=== PATIENT | female | born 1955 | race Caucasian/White ===

== ENCOUNTER → 2016-06-29 | Outpatient (CLI) | payer OTHER ==
[~2016-06-29] MED LIST: FUR40T PO; KRIL300C2 PO; METO-159 PO; NITR0.4D10 TD; POT10T PO; Pantoprazole Sodium Sesquihydr PO; WARF5TAB PO
[2016-06-29 12:50] LABS: Cholesterol 219 mg/dL (<200); HDL Cholesterol 50 mg/dL (40-59); LDL Cholesterol 146 mg/dL (<100); Triglycerides 254 mg/dL (<150)
== END | disposition home or self-care (01) ==
LOC: LAB 11:10
PROVIDERS: ATTEND Internal Medicine Cardiovascular Disease
DX: E78.2 Mixed hyperlipidemia (principal); I25.810 Atherosclerosis of coronary artery bypass graft(s) without angina pectoris
CPT/HCPCS: 36415; 80061

== ENCOUNTER 2016-07-15 07:46 | Emergency (ER) | payer OTHER ==
[~2016-07-15] VITALS: Ht 160 cm; Wt 78.9 kg
[2016-07-15 08:00] VITALS: BP 147/98
[2016-07-15] MEDS ORDERED: ETHYL CHLORIDE SPRAY TOP ONE (08:15)
[2016-07-15] MEDS ORDERED: KETOROLAC TROMETH 60MG/2ML VIAL IM ONE (08:30)
[2016-07-15] MEDS ORDERED: cefTRIAXone SOD 1,000 MG VL IM ONE (08:30)
[2016-07-15] MEDS ORDERED: HYDROcodone-ACET 10/325MG TAB PO ONE (08:45)
[2016-09-07] MEDS ORDERED: VENL37.56 PO (14:47)
[2016-09-07] MEDS ORDERED: ALIR1INJ3 SC (14:47)
[2016-09-07] MEDS ORDERED: ASPI-231 PO (14:47)
== END 2016-07-15 09:12 | disposition home or self-care (01) ==
LOC: ER 07:53
DX: K61.1 Rectal abscess (principal); E11.9 Type 2 diabetes mellitus without complications; I25.2 Old myocardial infarction; I25.810 Atherosclerosis of coronary artery bypass graft(s) without angina pectoris; Z95.1 Presence of aortocoronary bypass graft; Z79.01 Long term (current) use of anticoagulants; Z88.6 Allergy status to analgesic agent; Z88.8 Allergy status to other drugs, medicaments and biological substances; Z79.899 Other long term (current) drug therapy
CPT/HCPCS: 46040; 96372; 99284; C1887; J0696

== ENCOUNTER 2016-07-17 07:42 | Emergency (ER) | payer OTHER ==
[~2016-07-17] VITALS: Ht 160 cm; Wt 78.0 kg
[2016-07-17 08:11] VITALS: BP 156/84
== END 2016-07-17 09:32 | disposition home or self-care (01) ==
LOC: ER 07:42
DX: N76.4 Abscess of vulva (principal); E11.9 Type 2 diabetes mellitus without complications; I25.2 Old myocardial infarction; I25.810 Atherosclerosis of coronary artery bypass graft(s) without angina pectoris; Z88.6 Allergy status to analgesic agent; Z88.8 Allergy status to other drugs, medicaments and biological substances

== ENCOUNTER → 2016-09-21 | Outpatient (CLI) | payer OTHER ==
[~2016-09-21] MED LIST changes: +ALIR1INJ3 SC; +ASPI-231 PO; -FUR40T PO; -KRIL300C2 PO; -NITR0.4D10 TD; -POT10T PO; -Pantoprazole Sodium Sesquihydr PO; +VENL37.56 PO; -WARF5TAB PO
[2016-09-21 09:43] LABS: Basophils # (auto) 0 uL; Basophils % (auto) 0.6 % (0.0-2.0); Eosinophils # (auto) 0.2 uL; Eosinophils % (auto) 2.6 % (0.0-7.0); Hematocrit 43.4 % (36.0-46.0); Hemoglobin 14.4 g/dL (12.2-16.2); Lymphocytes # (auto) 2.3 uL; Lymphocytes % (auto) 37.7 % (10.0-50.0); Mean Corpuscular Hemoglobin 30.2 pg (28.0-32.0); Mean Corpuscular Hgb Conc. 33.3 g/dL (32.0-36.0); Mean Corpuscular Volume 90.6 fL (80.0-100.0); Mean Platelet Volume 8.1 fL (7.4-10.4); Monocytes # (auto) 0.3 uL; Monocytes % (auto) 5.5 % (0.0-12.0); Neutrophils # (auto) 3.3 uL; Neutrophils % (auto) 53.6 % (37.0-80.0); Platelet Count (auto) 270 10^3/uL (140-450); Red Cell Distribution Width 13.1 % (11.6-16.0); White Blood Cell 6.2 10^3/uL (4.4-10.8)
[2016-09-21 09:57] LABS: INR 0.97 (0.9-1.15); Partial Thromboplastin Time 24.5 sec (22.64-33.71); Prothrombin Time 10.5 sec (9.37-12.3); Urine Bilirubin Negative (Negative); Urine Color Yellow (Yellow); Urine Glucose Normal (Normal); Urine Ketone Negative (Negative); Urine Mucus FEW (None Seen); Urine Nitrite Negative (Negative); Urine RBC 9 /hpf (0 - 4); Urine Squamous Epithelial Cell MOD /hpf (<5); Urine Urobilinogen Normal (Negative)
[2016-09-21 10:12] LABS: Albumin 3.8 g/dL (3.4-5.0); BUN/Creatinine Ratio 23.2; Bilirubin, Total 0.4 mg/dL (0.2-1.0); Potassium 4.6 mmol/L (3.5-5.1); Total Protein 7.6 g/dL (6.4-8.2)
[2016-09-21 10:49] LABS: Urine Blood 2+ /uL (Negative)
== END | disposition home or self-care (01) ==
LOC: LAB 09:07
PROVIDERS: ATTEND Radiology Vascular & Interventional Radiology
DX: E78.5 Hyperlipidemia, unspecified (principal); Z01.818 Encounter for other preprocedural examination
CPT/HCPCS: 36415; 80053; 80061; 81001; 85025; 85610; 85730

== ENCOUNTER → 2016-09-23 | Day surgery (SDC) | payer OTHER ==
[~2016-09-23] VITALS: Ht 33 cm; Wt 0.5 kg
[~2016-09-23] MED LIST changes: +BUPIVACAINE HCL 50 ML ONE; +DEXAMETHASONE SOD PHOS 10MG/1ML VIAL INJ ONE; +GLYCOPYRROLATE 0.2 MG/ML 1ML VIAL ONE; +HEPARIN SODIUM (PORCINE) 5000 UNITS/ML 1ML VIAL ONE; +HEPARIN SODIUM (PORCINE) 5000 UNITS/ML 1ML VIAL SC ONE; +HYDROmorphone HCL 2 MG/ML VL IV PRN; +KETOROLAC TROMETH 30 MG/ML 1ML VIAL IV ONE; +LABETALOL HCL 5 MG/ML 4ML SYRINGE IV PRN; +LIDOCAINE 1% HCL (LOCAL ANESTH.) INJ 20ML MDV ONE; +MEPERIDINE HCL (50 MG/ML) 1 ML VIAL ONE; +MIDAZOLAM HCL 1MG/1ML-2 ML VIAL IV PRN; +MIDAZOLAM HCL 1MG/1ML-2 ML VIAL ONE; +MORPHINE SULF INJ 2 MG/ML SYRINGE 1ML IV PRN; +NEOSTIGMINE 1 MG/ML INJ (10mg/10ML VIAL) ONE; +ONDANSETRON HCL 4 MG/2 ML VIAL IV ONE; +PIPERACILLIN-TAZOB 3.375GM 100 ML IV ONE; +PROPOFOL 10 MG/ML 20 ML IV ONE; +SUCCINYLCHOLINE CHLORIDE 20 MG/ML 10ML VIAL IV ONE; +ePHEDrine SULFATE 50 MG/ML AMP IV PRN; +fentaNYL CITRATE 100 MCG/2 ML VL ONE; +hydrALAZINE HCL 20 MG/ML VL IV PRN; +metroNIDAZOLE 500MG/100ML 100 ML IV ONE
[2016-09-23 12:39] VITALS: BP 139/73
== END | disposition home or self-care (01) ==
LOC: SUR 07:07
DX: K60.3 Anal fistula (principal); K64.2 Third degree hemorrhoids; Z95.1 Presence of aortocoronary bypass graft; Z90.710 Acquired absence of both cervix and uterus
CPT/HCPCS: 46020; J0330; J1100; J1644; J2001; J2175; J2250; J2543; J2704; J3010; J3490

== ENCOUNTER → 2017-02-05 | Outpatient (CLI) | payer OTHER ==
[~2017-02-05] MED LIST changes: -BUPIVACAINE HCL 50 ML ONE; -DEXAMETHASONE SOD PHOS 10MG/1ML VIAL INJ ONE; -GLYCOPYRROLATE 0.2 MG/ML 1ML VIAL ONE; -HEPARIN SODIUM (PORCINE) 5000 UNITS/ML 1ML VIAL ONE; -HEPARIN SODIUM (PORCINE) 5000 UNITS/ML 1ML VIAL SC ONE; -HYDROmorphone HCL 2 MG/ML VL IV PRN; -KETOROLAC TROMETH 30 MG/ML 1ML VIAL IV ONE; -LABETALOL HCL 5 MG/ML 4ML SYRINGE IV PRN; -LIDOCAINE 1% HCL (LOCAL ANESTH.) INJ 20ML MDV ONE; -MEPERIDINE HCL (50 MG/ML) 1 ML VIAL ONE; -MIDAZOLAM HCL 1MG/1ML-2 ML VIAL IV PRN; -MIDAZOLAM HCL 1MG/1ML-2 ML VIAL ONE; -MORPHINE SULF INJ 2 MG/ML SYRINGE 1ML IV PRN; -NEOSTIGMINE 1 MG/ML INJ (10mg/10ML VIAL) ONE; -ONDANSETRON HCL 4 MG/2 ML VIAL IV ONE; -PIPERACILLIN-TAZOB 3.375GM 100 ML IV ONE; -PROPOFOL 10 MG/ML 20 ML IV ONE; -SUCCINYLCHOLINE CHLORIDE 20 MG/ML 10ML VIAL IV ONE; -ePHEDrine SULFATE 50 MG/ML AMP IV PRN; -fentaNYL CITRATE 100 MCG/2 ML VL ONE; -hydrALAZINE HCL 20 MG/ML VL IV PRN; -metroNIDAZOLE 500MG/100ML 100 ML IV ONE
[2017-02-05 09:38] LABS: Albumin 3.7 g/dL (3.4-5.0); Alkaline Phosphatase 88 U/L (45-117); Anion Gap 9 (5-15); Aspartate Aminotransferase 15 U/L (15-37); BUN/Creatinine Ratio 28.6; Bilirubin, Direct < 0.1 mg/dL (0-0.2); Bilirubin, Total 0.3 mg/dL (0.2-1.0); Blood Urea Nitrogen 20 mg/dL (7-18); Calcium 9.1 mg/dL (8.5-10.1); Carbon Dioxide 26 mmol/L (21-32); Chloride 104 mmol/L (98-107); Cholesterol 148 mg/dL (< 200); GFR African American 109 mL/min; GFR Non-African American 90 mL/min; Glucose 105 mg/dL (74-106); HDL Cholesterol 50 mg/dL (40-59); LDL Cholesterol 85 mg/dL (< 100); Potassium 4.5 mmol/L (3.5-5.1); Sodium 139 mmol/L (136-145); Total Protein 7.4 g/dL (6.4-8.2); Triglycerides 203 mg/dL (< 150)
== END | disposition home or self-care (01) ==
LOC: LAB 08:03
PROVIDERS: ATTEND Internal Medicine Cardiovascular Disease
DX: E78.5 Hyperlipidemia, unspecified (principal); I25.798 Atherosclerosis of other coronary artery bypass graft(s) with other forms of angina pectoris; I25.10 Atherosclerotic heart disease of native coronary artery without angina pectoris; E11.9 Type 2 diabetes mellitus without complications
CPT/HCPCS: 36415; 80053; 80061; 80076

== ENCOUNTER → 2017-03-22 | Outpatient (CLI) | payer OTHER | END | disposition home or self-care (01) | LOC: LAB 17:06 | PROVIDERS: ATTEND Internal Medicine | DX: Z00.01 Encounter for general adult medical examination with abnormal findings (principal); R79.89 Other specified abnormal findings of blood chemistry | CPT/HCPCS: 82270 ==

== ENCOUNTER → 2017-05-10 | Outpatient (CLI) | payer OTHER ==
[2017-05-10 11:08] LABS: Basophils # (auto) 0.1 uL; Basophils % (auto) 0.8 % (0.0-2.0); Eosinophils # (auto) 0.2 uL; Eosinophils % (auto) 2.3 % (0.0-7.0); Hematocrit 44.5 % (36.0-46.0); Hemoglobin 15.4 g/dL (12.2-16.2); Lymphocytes # (auto) 2.5 uL; Lymphocytes % (auto) 30.4 % (10.0-50.0); Mean Corpuscular Hgb Conc. 34.5 g/dL (32.0-36.0); Mean Corpuscular Volume 92.7 fL (80.0-100.0); Mean Platelet Volume 8.2 fL (6.9-10.8); Monocytes # (auto) 0.4 uL; Monocytes % (auto) 5.2 % (0.0-12.0); Neutrophils % (auto) 61.3 % (37.0-80.0); Nucleated Red Blood Cells % 0.1 %; Platelet Count (auto) 287 10^3/uL (140-450); Red Cell Distribution Width 12.6 % (11.8-14.3); White Blood Cell 8.1 10^3/uL (4.4-10.8)
[2017-05-10 11:52] LABS: Cholesterol 85 mg/dL (< 200); HDL Cholesterol 49 mg/dL (40-59); LDL Cholesterol 48 mg/dL (< 100); Triglycerides 67 mg/dL (< 150)
== END | disposition home or self-care (01) ==
LOC: LAB 08:50
PROVIDERS: ATTEND Internal Medicine Cardiovascular Disease
DX: I10 Essential (primary) hypertension (principal); E78.5 Hyperlipidemia, unspecified; E78.2 Mixed hyperlipidemia; R63.5 Abnormal weight gain; I07.8 Other rheumatic tricuspid valve diseases
CPT/HCPCS: 36415; 80061; 84443; 85025

== ENCOUNTER → 2017-09-01 | Outpatient (CLI) | payer OTHER ==
[2017-09-01 09:39] LABS: Cholesterol 139 mg/dL (< 200); HDL Cholesterol 45 mg/dL (40-59); LDL Cholesterol 78 mg/dL (< 100); Triglycerides 256 mg/dL (< 150)
== END | disposition home or self-care (01) ==
LOC: LAB 08:31
PROVIDERS: ATTEND Internal Medicine Cardiovascular Disease
DX: E78.5 Hyperlipidemia, unspecified (principal); I25.729 Atherosclerosis of autologous artery coronary artery bypass graft(s) with unspecified angina pectoris; I10 Essential (primary) hypertension
CPT/HCPCS: 36415; 80061

== ENCOUNTER → 2017-09-20 | Outpatient (CLI) | payer OTHER | END | disposition home or self-care (01) | LOC: LAB 10:07 | PROVIDERS: ATTEND Physician Assistant | DX: I26.99 Other pulmonary embolism without acute cor pulmonale (principal); I10 Essential (primary) hypertension; E78.5 Hyperlipidemia, unspecified; E11.9 Type 2 diabetes mellitus without complications; Z79.899 Other long term (current) drug therapy; Z79.82 Long term (current) use of aspirin; Z79.01 Long term (current) use of anticoagulants | CPT/HCPCS: 36415; 82565; 84520 ==

== ENCOUNTER → 2017-09-21 | Outpatient (CLI) | payer OTHER | END | disposition home or self-care (01) | LOC: LAB 07:39 | PROVIDERS: ATTEND Internal Medicine Cardiovascular Disease | DX: I25.729 Atherosclerosis of autologous artery coronary artery bypass graft(s) with unspecified angina pectoris (principal); I10 Essential (primary) hypertension; E78.5 Hyperlipidemia, unspecified; E11.9 Type 2 diabetes mellitus without complications; Z79.899 Other long term (current) drug therapy; Z79.82 Long term (current) use of aspirin; Z79.01 Long term (current) use of anticoagulants | CPT/HCPCS: 83880 ==

== ENCOUNTER → 2017-10-18 | Outpatient (CLI) | payer OTHER ==
[2017-10-18 11:45] LABS: Basophils # (auto) 0.1 uL; Basophils % (auto) 0.7 % (0.0-2.0); Eosinophils # (auto) 0.2 uL; Eosinophils % (auto) 2.2 % (0.0-7.0); Hematocrit 44.9 % (36.0-46.0); Hemoglobin 14.9 g/dL (12.2-16.2); Lymphocytes # (auto) 2.7 uL; Lymphocytes % (auto) 36.2 % (10.0-50.0); Mean Corpuscular Hemoglobin 31.5 pg (28.0-32.0); Mean Corpuscular Hgb Conc. 33.3 g/dL (32.0-36.0); Mean Corpuscular Volume 94.7 fL (80.0-100.0); Monocytes # (auto) 0.4 uL; Monocytes % (auto) 5.1 % (0.0-12.0); Neutrophils # (auto) 4.2 uL; Neutrophils % (auto) 55.8 % (37.0-80.0); Platelet Count (auto) 288 10^3/uL (140-450); Red Blood Cells 4.74 10^6/uL (4.0-5.20); Red Cell Distribution Width 12.7 % (11.8-14.3); White Blood Cell 7.5 10^3/uL (4.4-10.8)
[2017-10-18 12:54] LABS: Albumin 3.9 g/dL (3.4-5.0); BUN/Creatinine Ratio 27.9; Bilirubin, Total 0.4 mg/dL (0.2-1.0); Potassium 4.6 mmol/L (3.5-5.1); Total Protein 7.6 g/dL (6.4-8.2)
== END | disposition home or self-care (01) ==
LOC: LAB 10:21
PROVIDERS: ATTEND Physician Assistant
DX: Z00.01 Encounter for general adult medical examination with abnormal findings (principal); E78.1 Pure hyperglyceridemia; I10 Essential (primary) hypertension; I25.719 Atherosclerosis of autologous vein coronary artery bypass graft(s) with unspecified angina pectoris; E11.9 Type 2 diabetes mellitus without complications; Z79.82 Long term (current) use of aspirin; E78.2 Mixed hyperlipidemia; Z95.1 Presence of aortocoronary bypass graft; Z79.899 Other long term (current) drug therapy
CPT/HCPCS: 36415; 80053; 80061; 83036; 85025

== ENCOUNTER → 2018-02-11 | Outpatient (CLI) | payer OTHER ==
[2018-02-11 11:41] LABS: Alanine Aminotransferase 44 U/L (13-56); Albumin 3.9 g/dL (3.4-5.0); Alkaline Phosphatase 80 U/L (45-117); Aspartate Aminotransferase 21 U/L (15-37); Bilirubin, Direct < 0.1 mg/dL (0-0.2); Bilirubin, Total 0.7 mg/dL (0.2-1.0); Cholesterol 281 mg/dL (< 200); HDL Cholesterol 44 mg/dL (40-59); LDL Cholesterol 205 mg/dL (< 100); Total Protein 7.8 g/dL (6.4-8.2); Triglycerides 281 mg/dL (< 150)
== END | disposition home or self-care (01) ==
LOC: LAB 10:05
PROVIDERS: ATTEND Internal Medicine Cardiovascular Disease
DX: E78.2 Mixed hyperlipidemia (principal); I25.810 Atherosclerosis of coronary artery bypass graft(s) without angina pectoris
CPT/HCPCS: 36415; 80061; 80076

== ENCOUNTER → 2018-02-14 | Outpatient (CLI) | payer OTHER | END | disposition home or self-care (01) | LOC: LAB 11:01 | PROVIDERS: ATTEND Internal Medicine Cardiovascular Disease | DX: I25.10 Atherosclerotic heart disease of native coronary artery without angina pectoris (principal); I10 Essential (primary) hypertension; E78.2 Mixed hyperlipidemia | CPT/HCPCS: 36415; 84550; 85652; 86038; 86431 ==

== ENCOUNTER → 2018-04-12 | Outpatient (CLI) | payer OTHER | END | disposition home or self-care (01) | LOC: LAB 07:32 | PROVIDERS: ATTEND Physician Assistant | DX: Z12.11 Encounter for screening for malignant neoplasm of colon (principal) | CPT/HCPCS: 82270 ==

== ENCOUNTER → 2018-04-22 | Outpatient (CLI) | payer OTHER ==
[2018-04-22 12:44] LABS: Basophils # (auto) 0.1 uL; Basophils % (auto) 0.8 % (0.0-2.0); Eosinophils # (auto) 0.1 uL; Hematocrit 45.5 % (36.0-46.0); Hemoglobin 15.4 g/dL (12.2-16.2); Lymphocytes # (auto) 2.4 uL; Lymphocytes % (auto) 33.3 % (10.0-50.0); Mean Corpuscular Hemoglobin 31.8 pg (28.0-32.0); Mean Corpuscular Hgb Conc. 33.9 g/dL (32.0-36.0); Mean Corpuscular Volume 93.9 fL (80.0-100.0); Monocytes # (auto) 0.3 uL; Monocytes % (auto) 4.4 % (0.0-12.0); Neutrophils # (auto) 4.3 uL; Neutrophils % (auto) 59.5 % (37.0-80.0); Platelet Count (auto) 275 10^3/uL (140-450); Red Blood Cells 4.85 10^6/uL (4.0-5.20); Red Cell Distribution Width 12.8 % (11.8-14.3); White Blood Cell 7.2 10^3/uL (4.4-10.8)
[2018-04-22 12:46] LABS: Potassium 4.3 mmol/L (3.5-5.1)
[2018-04-22 12:50] LABS: Urine Bacteria NONE SEEN /hpf (None Seen); Urine Blood 1+ /uL (Negative); Urine Mucus FEW (None Seen); Urine Specific Gravity 1.023 (1.001-1.035); Urine WBC 3 /hpf (0 - 5)
[2018-04-22 12:51] LABS: Albumin 4.2 g/dL (3.4-5.0); BUN/Creatinine Ratio 21.3; Bilirubin, Total 0.4 mg/dL (0.2-1.0); CRP High Sensitivity 0.64 mg/dL (< 0.3); Calcium 9.1 mg/dL (8.5-10.1); Total Protein 8.2 g/dL (6.4-8.2)
[2018-04-22 12:53] LABS: Protein, Urine 47.3 mg/dL (0.0-11.9)
== END | disposition home or self-care (01) ==
LOC: LAB 10:36
PROVIDERS: ATTEND Internal Medicine
DX: I10 Essential (primary) hypertension (principal); E03.9 Hypothyroidism, unspecified; R76.8 Other specified abnormal immunological findings in serum; M32.9 Systemic lupus erythematosus, unspecified; M06.9 Rheumatoid arthritis, unspecified; M45.0 Ankylosing spondylitis of multiple sites in spine; D64.9 Anemia, unspecified; Z79.899 Other long term (current) drug therapy
CPT/HCPCS: 36415; 80053; 81001; 82570; 84156; 84443; 85025; 85652; 86141; 86160; 86200; 86376; 86431; 86800

== ENCOUNTER → 2018-05-26 | Outpatient (CLI) | payer OTHER ==
[2018-05-26 15:27] LABS: Urine Blood 2+ /uL (Negative); Urine Specific Gravity 1.023 (1.001-1.035)
== END | disposition home or self-care (01) ==
LOC: LAB 14:33
PROVIDERS: ATTEND Internal Medicine
DX: M32.10 Systemic lupus erythematosus, organ or system involvement unspecified (principal); M45.0 Ankylosing spondylitis of multiple sites in spine; M32.9 Systemic lupus erythematosus, unspecified; M35.00 Sjogren syndrome, unspecified
CPT/HCPCS: 81003; 86225; 86235; 86812; 87086

== ENCOUNTER 2018-06-20 13:17 | Emergency (ER) | payer OTHER ==
[~2018-06-20] VITALS: Ht 160 cm; Wt 82.6 kg
[2018-06-20 14:10] LABS: Basophils # (auto) 0.1 uL; Basophils % (auto) 0.9 % (0.0-2.0); Eosinophils # (auto) 0.2 uL; Eosinophils % (auto) 2.1 % (0.0-7.0); Hematocrit 46.7 % (36.0-46.0); Hemoglobin 15.7 g/dL (12.2-16.2); Lymphocytes # (auto) 2.8 uL; Lymphocytes % (auto) 32.2 % (10.0-50.0); Mean Corpuscular Hemoglobin 31.8 pg (28.0-32.0); Mean Corpuscular Hgb Conc. 33.6 g/dL (32.0-36.0); Mean Corpuscular Volume 94.8 fL (80.0-100.0); Monocytes # (auto) 0.4 uL; Monocytes % (auto) 4.9 % (0.0-12.0); Neutrophils # (auto) 5.2 uL; Neutrophils % (auto) 59.9 % (37.0-80.0); Nucleated Red Blood Cells % 0.1 %; Platelet Count (auto) 326 10^3/uL (140-450); Red Blood Cells 4.93 10^6/uL (4.0-5.20); Red Cell Distribution Width 12.3 % (11.8-14.3); White Blood Cell 8.7 10^3/uL (4.4-10.8)
[2018-06-20 14:22] LABS: Alanine Aminotransferase 41 U/L (13-56); Albumin 3.9 g/dL (3.4-5.0); Anion Gap 5 (5-15); Aspartate Aminotransferase 29 U/L (15-37); BUN/Creatinine Ratio 22.1; Blood Urea Nitrogen 19 mg/dL (7-18); Carbon Dioxide 27 mmol/L (21-32); Chloride 104 mmol/L (98-107); GFR African American > 60 mL/min; GFR Non-African American > 60 mL/min; Glucose 112 mg/dL (74-106); Potassium 4.4 mmol/L (3.5-5.1); Sodium 136 mmol/L (136-145)
[2018-06-20 14:27] LABS: Alkaline Phosphatase 89 U/L (45-117); Bilirubin, Total 0.4 mg/dL (0.2-1.0); INR 0.95 (0.9-1.15); Prothrombin Time 10.2 sec (9.27-12.13)
[2018-06-20 15:29] LABS: Urine Bacteria NONE SEEN /hpf (None Seen); Urine Blood Negative /uL (Negative); Urine Mucus FEW (None Seen); Urine Specific Gravity 1.024 (1.001-1.035); Urine WBC 4 /hpf (0 - 5)
[2018-06-20 16:44] VITALS: BP 130/76
== END 2018-06-20 16:53 | disposition home or self-care (01) ==
LOC: ER 13:28
DX: R00.1 Bradycardia, unspecified (principal); Z95.1 Presence of aortocoronary bypass graft; Z88.6 Allergy status to analgesic agent; Z88.8 Allergy status to other drugs, medicaments and biological substances; Z79.82 Long term (current) use of aspirin; Z79.899 Other long term (current) drug therapy
CPT/HCPCS: 36415; 71045; 80053; 81001; 84484; 85025; 85610; 85730; 93005